=== PATIENT | male | born 1990 ===

== ENCOUNTER 2018-12-01 09:18 | Day surgery (SDC) | payer OTHER ==
[2018-12-01 09:41] VITALS: BMI 33.6
[2018-12-01] MEDS ORDERED: Lactated Ringer's 500 ML IV ONE (09:49)
[2018-12-01] MEDS ORDERED: Propofol 10 mg/ml Inj (20 ML) ONE (11:19)
[2018-12-01] MEDS ORDERED: Midazolam 2 MG/2 ML VIAL ONE (11:19)
[2018-12-01 11:54] VITALS: TEMP 97
[2018-12-01 12:08] VITALS: BP 116/61; PULSE 73; RESP 20; O2SAT 100
== END 2018-12-01 12:29 | disposition home or self-care (01) ==
LOC: H.ENDO 09:18
PROVIDERS: ATTEND Internal Medicine Gastroenterology
DX: K92.1 Melena (principal); E66.9 Obesity, unspecified; R06.83 Snoring; K64.8 Other hemorrhoids
CPT/HCPCS: 45380; 88305; J2001; J2250; J2704; J7120